=== PATIENT | male | born 1970 | race Caucasian/White ===

== ENCOUNTER 2017-08-02 18:58 | Outpatient (CLI) | payer MEDICAID | END 2017-08-02 18:59 | disposition critical access hospital (66) | LOC: EMS 18:58 | PROVIDERS: ATTEND Surgery | DX: M25.551 Pain in right hip (principal) | CPT/HCPCS: A0425; A0429 ==

== ENCOUNTER 2017-08-02 19:24 | Emergency (ER) | payer MEDICAID ==
--- NOTE | 2017-08-02 20:05 | ED Physician Documentation ---
History of Present Illness - Stated complaint Stated Complaint: RIGHT HIP PAIN - Chief complaint Chief Complaint: Ext Problem - History obtained from History obtained from: Patient - History of Present Illness Timing: How many weeks ago (2-3) Pain level now: 2 Improved by: rest Worsened by: weight-bearing, ambulating - Additonal information Additional information: c/o few weeks of atraumatic right hip pain. Was evaluated at ED, xrays performed (hip, femur, as well as shoulder, as he also was having right shoulder pain at the time, although the shoulder pain resolved). Presents due to ongoing right hip pain. Review of Systems Constitutional: denies: Fever, Chills, Sweats Musculoskeletal: reports: Joint pain (right hip), Pain with weight bearing. denies: Back pain, Extremity swelling, Joint swelling Neurologic: denies: Focal weakness, Numbness PD PAST MEDICAL HISTORY - Past Medical History Past Medical History: Yes Neuro: Seizure disorder Endocrine/Autoimmune: HyPOthyroidism GI: Other Other Past Medical History: Acid reflux - Past Surgical History Past Surgical History: Yes Ortho: Other - Present Medications Home Medications: Ambulatory Orders Medication Instructions Recorded Confirmed Clobazam [Onfi] 10 mg PO BID 08/02/17 Darunavir Ethanolate [Prezista] 1 tab PO DAILY 08/02/17 Emtricitabine/Tenofovir [Truvada 1 tab PO DAILY 08/02/17 200 mg-300 mg Tablet] Lacosamide [Vimpat] 200 mg PO BID 08/02/17 Levothyroxine [Synthroid] 1 tab PO DAILY 08/02/17 Lisinopril 20 mg PO BID 08/02/17 Omeprazole [PriLOSEC] 1 cap PO DAILY 08/02/17 Ritonavir [Norvir] 1 tab PO DAILY 08/02/17 lamoTRIgine [Lamictal Odt] 100 mg PO BID 08/02/17 oxyCODONE [Roxicodone] 5 - 10 mg PO Q6H PRN #20 tablet 08/02/17 - Allergies Allergies/Adverse Reactions: Allergies Allergy/AdvReac Type Severity Reaction Status Date / Time rabeprazole [From Aciphex] Allergy Unknown Verified 08/02/17 19:40 Sulfa (Sulfonamide Allergy Unknown Verified 08/02/17 19:40 Antibiotics) - Social History Does the pt smoke?: No Smoking Status: Never smoker Does the pt drink ETOH?: No Does the pt have substance abuse?: No - Immunizations Immunizations are current?: No Immunizations: TDAP >10years/unknown - POLST Patient has POLST: No PD ED PE NORMAL - Vitals Vital signs reviewed: Yes - General General: Alert and oriented X 3, No acute distress, Well developed/nourished - Abdomen Abdomen: Soft, Non tender - Back Back: No spinal TTP - Derm Derm: Normal color, Warm and dry, No rash - Extremities Extremities: No deformity, No tenderness to palpate, Normal ROM s pain, No edema , No calf tenderness / cord Results - Vitals Vitals: Vital Signs - 24 hr 08/02/17 08/02/17 08/02/17 19:25 21:47 22:48 Temperature 36.2 C L 36.3 C L 36.3 C L Heart Rate 71 68 79 Respiratory 17 16 18 Rate Blood Pressure 141/92 H 138/82 H 134/79 H O2 Saturation 97 98 96 Oxygen O2 Source Room air - Rads (name of study) CT right hip Radiology: Prelim report reviewed, See rad report PD MEDICAL DECISION MAKING - ED course Complexity details: reviewed results, re-evaluated patient, considered differential, d/w patient - Sepsis Event Vital Signs: Vital Signs - 24 hr 08/02/17 08/02/17 08/02/17 19:25 21:47 22:48 Temperature 36.2 C L 36.3 C L 36.3 C L Heart Rate 71 68 79 Respiratory 17 16 18 Rate Blood Pressure 141/92 H 138/82 H 134/79 H O2 Saturation 97 98 96 Oxygen O2 Source Room air Departure - Departure Disposition: 01 Home, Self Care Clinical Impression: Avascular necrosis of bone of right hip Condition: Good Instructions: ED Degenerative Joint Disease Follow-Up: Ibeth Aguila MD [Provider Admit Priv/Credential] - Prescriptions: oxyCODONE [Roxicodone] 5 - 10 mg PO Q6H PRN #20 tablet PRN Reason: Pain Comments: The CT scan reveals AVASCULAR NECROSIS OF THE RIGHT FEMORAL HEAD. This is a problem with the blood supply to the very top of the femur (at the hip joint) which results in inadequate blood flow and gradual destruction of the bone. You need to follow up with an orthopedic surgeon for further testing and discussion of options for treatment. Discharge Date/Time: 08/02/17 22:51
--- NOTE | 2017-08-02 21:39 | CT Report ---
Procedure Date: 08/02/2017 Accession Number: [id number] / [id number] Procedure: CT - Lower Extremity Right W/O CPT Code: FULL RESULT: EXAM: RIGHT HIP CT WITHOUT CONTRAST EXAM DATE: 08/02/2017 09:18 PM. CLINICAL HISTORY: Hip pain. COMPARISON: None. TECHNIQUE: Thin-section axial images were acquired of the hip without contrast. Post-processing: Coronal and sagittal reformats. Other: None. In accordance with CT protocol optimization, one or more of the following dose reduction techniques were utilized for this exam: automated exposure control, adjustment of mA and/or KV based on patient size, or use of iterative reconstructive technique. FINDINGS: Bones: Superior right femoral head avascular necrosis with geographic decreased density superior femoral head marginated by sclerotic rim measuring 3.7 cm in transverse dimension and 4.5 cm in AP dimension. Negative for subcortical crescent. Negative for right femoral head collapse. Joints: The visualized hip joint spaces are normal. No calcified loose bodies. No large effusions. The other visualized joint spaces are normal. Musculature: Normal. No fatty atrophy. Other: The visualized intraperitoneal structures are unremarkable. IMPRESSION: Ficat and Nina classification stage II right femoral head avascular necrosis. RADIA
[2017-08-02] MEDS ORDERED: oxyCODONE 5 MG TABLET PO STA (22:32)
[2017-08-02 22:48] VITALS: BP 134/79
== END 2017-08-02 22:51 | disposition home or self-care (01) ==
LOC: ED 19:24
DX: M87.051 Idiopathic aseptic necrosis of right femur (principal)
CPT/HCPCS: 73700; 99283; A9270

== ENCOUNTER 2017-11-26 10:59 | Emergency (ER) | payer MEDICAID ==
--- NOTE | 2017-11-26 12:42 | ED Physician Documentation ---
PD HPI LOWER EXT INJURY - Stated complaint Stated Complaint: ABD PX/HIP PX - Chief complaint Chief Complaint: Ext Problem - History obtained from History obtained from: Patient - History of Present Illness PD HPI LOW EXT INJURY LOCATION: Right (47-year-old gentleman has chronic right hip pain from avascular necrosis and is scheduled for replacement in January the [facility]. He has been getting as needed oxycodone from his primary care physician, however his insurance will not cover it anymore and he needs something to get him through as the pain is intolerable. He has not been on anything else except for ibuprofen for the pain which does help somewhat.) Review of Systems Constitutional: reports: Reviewed and negative Cardiac: reports: Reviewed and negative Respiratory: reports: Reviewed and negative PD PAST MEDICAL HISTORY - Past Medical History Past Medical History: Yes Cardiovascular: Hypertension Neuro: Seizure disorder Endocrine/Autoimmune: HyPOthyroidism GI: GERD, Other - Past Surgical History Past Surgical History: Yes General: Colonoscopy, Other Ortho: Other - Present Medications Home Medications: Ambulatory Orders Medication Instructions Recorded Confirmed Clobazam [Onfi] 10 mg PO BID 08/02/17 11/26/17 Darunavir Ethanolate [Prezista] 1 tab PO DAILY 08/02/17 11/26/17 Emtricitabine/Tenofovir [Truvada 1 tab PO DAILY 08/02/17 11/26/17 200 mg-300 mg Tablet] Lacosamide [Vimpat] 200 mg PO BID 08/02/17 11/26/17 Levothyroxine [Synthroid] 1 tab PO DAILY 08/02/17 11/26/17 Lisinopril 20 mg PO BID 08/02/17 11/26/17 Omeprazole [PriLOSEC] 1 cap PO DAILY 08/02/17 11/26/17 Ritonavir [Norvir] 1 tab PO DAILY 08/02/17 11/26/17 lamoTRIgine [Lamictal Odt] 100 mg PO BID 08/02/17 11/26/17 oxyCODONE [Roxicodone] 5 - 10 mg PO Q6H PRN #20 tablet 08/02/17 11/26/17 Ibuprofen [Motrin] 800 mg PO Q8H PRN #30 tablet 11/26/17 Morphine Ir [Ms Ir] 15 mg PO Q6H PRN #15 tablet 11/26/17 - Allergies Allergies/Adverse Reactions: Allergies Allergy/AdvReac Type Severity Reaction Status Date / Time rabeprazole [From Aciphex] Allergy Unknown Verified 11/26/17 11:58 Sulfa (Sulfonamide Allergy Unknown Verified 11/26/17 11:58 Antibiotics) - Social History Does the pt smoke?: No Smoking Status: Never smoker Does the pt drink ETOH?: No Does the pt have substance abuse?: No - Immunizations Immunizations are current?: Yes Immunizations: TDAP current <10years - POLST Patient has POLST: No PD ED PE NORMAL - Vitals Vital signs reviewed: Yes - General General: Alert and oriented X 3, No acute distress - Neuro Neuro: Alert and oriented X 3, Normal speech - Psych Psych: Normal mood, Normal affect Results - Vitals Vitals: Vital Signs - 24 hr 11/26/17 11:24 Temperature 35.9 C L Heart Rate 81 Respiratory 14 Rate Blood Pressure 125/85 H O2 Saturation 99 Oxygen O2 Source Room air PD MEDICAL DECISION MAKING - ED course ED course: The [place] prescription monitoring program was queried with regard to this patient. No concerning findings were found. Departure - Departure Disposition: 01 Home, Self Care Clinical Impression: Avascular necrosis of bone of right hip Condition: Good Record reviewed to determine appropriate education?: Yes Prescriptions: Ibuprofen [Motrin] 800 mg PO Q8H PRN #30 tablet PRN Reason: PAIN &/OR FEVER Morphine Ir [Ms Ir] 15 mg PO Q6H PRN #15 tablet PRN Reason: Pain Comments: Follow-up with your primary care physician for further prescriptions and pain management. Return if worse or if new complaints develop. Do not drink or drive while taking narcotic pain medication. Note that many narcotic pain relievers also contain Tylenol/acetaminophen. Please ensure that your total dose of acetaminophen from all sources does not exceed 3 g (3000 mg) per day. You may get constipated while on this medication. Take a stool softener such as Colace twice a day while you are on it. Also add an [id number]-tll-jcbffoc laxative such as senna or MiraLAX on any day that you do not have a bowel movement. If you received a narcotic pain medication or sedative while in the emergency department, do not drive for the next 24 hours. Your blood pressure was elevated today on check into the emergency department. This does not mean that you have hypertension, it is a common phenomenon to come to the emergency department and have elevated blood pressure. I recommend that you see your primary care physician within the week to have it rechecked when you are feeling better.
[2017-11-26 12:55] VITALS: BP 146/85
== END 2017-11-26 12:55 | disposition home or self-care (01) ==
LOC: ED 10:59
DX: M87.9 Osteonecrosis, unspecified (principal); M25.551 Pain in right hip; I10 Essential (primary) hypertension
CPT/HCPCS: 99283

== ENCOUNTER 2019-03-30 11:50 | Outpatient (CLI) | payer MEDICAID | END 2019-03-30 11:51 | disposition short-term general hospital (02) | LOC: EMS 11:50 | PROVIDERS: ATTEND Surgery | DX: R07.9 Chest pain, unspecified (principal); R00.0 Tachycardia, unspecified; R06.02 Shortness of breath | CPT/HCPCS: A0425; A0427; A0999 ==

== ENCOUNTER 2019-05-22 11:25 | Emergency (ER) | payer MEDICAID ==
[2019-05-22] MEDS ORDERED: SODIUM CHLORIDE 0.9% 1,000 ML IV ONE (12:56)
--- NOTE | 2019-05-22 13:01 | ED Physician Documentation ---
PD HPI NVD - Stated complaint Stated Complaint: DIARRHEA - Chief complaint Chief Complaint: General - History obtained from History obtained from: Patient - History of Present Illness Timing - onset: Last night Timing - duration: Hours Timing - details: Abrupt onset, Still present Associated symptoms: Other (profuse diarrhea) Contributing factors: Bad food (over ate a lot last night nothting specific is suspected.) Improved by: BM Similar symptoms before: Diagnosis (travellers diarrhea) Recently seen: Not recently seen - Additonal information Additional information: 49-year-old male with a history of avascular necrosis of the right hip and HIV has developed acute diarrhea beginning last night. He states that he over ate a bunch of different things and does not suspect any specific item. He denies any undercooked eggs or poultry. He denies receiving any fresh eggs from his neighbors.He has had multiple episodes throughout the night. He remembers the last time he had this he does not have much in the way of pain. In [place] he required an antibiotic to resolve it. His coronavirus exposure is low. He reports being in his home with his father for the past several weeks and he has rarely been outside the house. Review of Systems Constitutional: denies: Fever, Chills, Myalgias, Fatigue, Sweats Eyes: denies: Decreased vision Ears: denies: Ear pain Nose: denies: Rhinorrhea / runny nose, Congestion Throat: denies: Sore throat Cardiac: denies: Chest pain / pressure Respiratory: denies: Dyspnea, Cough GI: reports: Diarrhea. denies: Abdominal Pain, Nausea, Vomiting : denies: Dysuria, Frequency Skin: denies: Rash Musculoskeletal: reports: Joint pain. denies: Neck pain, Back pain, Extremity pain Neurologic: denies: Generalized weakness, Focal weakness, Numbness PD PAST MEDICAL HISTORY - Past Medical History Cardiovascular: Hypertension Neuro: Seizure disorder Endocrine/Autoimmune: HyPOthyroidism GI: GERD, Other - Past Surgical History Past Surgical History: Yes General: Colonoscopy, Other Ortho: Other - Present Medications Home Medications: Ambulatory Orders Medication Instructions Recorded Confirmed Clobazam [Onfi] 10 mg PO BID 08/02/17 05/22/19 Lacosamide [Vimpat] 200 mg PO BID 08/02/17 05/22/19 Levothyroxine [Synthroid] 1 tab PO DAILY 08/02/17 11/26/17 lamoTRIgine [Lamictal Odt] 100 mg PO TID 08/02/17 11/26/17 lisinopriL [Lisinopril] 20 mg PO BID 08/02/17 05/22/19 Morphine Ir [Ms Ir] 15 mg PO Q6H PRN #15 tablet 11/26/17 05/22/19 Aspirin [Adult Aspirin Regimen] 81 mg PO DAILY 05/22/19 Ciprofloxacin HCl [Cipro] 500 mg PO BID #14 tablet 05/22/19 Clopidogrel [Plavix] 75 mg PO DAILY 05/22/19 05/22/19 Elviteg/Cob/Emtri/Tenof Alafen 1 each PO DAILY 05/22/19 05/22/19 [Genvoya Tablet] Ezetimibe 10 mg PO DAILY 05/22/19 05/22/19 Isosorbide Mononitrate ER [Imdur] 30 mg PO DAILY 05/22/19 05/22/19 Metoprolol Succinate 25 mg PO DAILY 05/22/19 05/22/19 Nitroglycerin [Nitrostat] 0.4 mg SL Q5MIN PRN 05/22/19 05/22/19 Pantoprazole Sodium 40 mg PO DAILY 05/22/19 05/22/19 Rosuvastatin Calcium 10 mg PO DAILY 05/22/19 05/22/19 - Allergies Allergies/Adverse Reactions: Allergies Allergy/AdvReac Type Severity Reaction Status Date / Time rabeprazole [From Aciphex] Allergy Unknown Verified 12/20/18 12:13 Sulfa (Sulfonamide Allergy Unknown Verified 12/20/18 12:13 Antibiotics) - Social History Does the pt smoke?: No Smoking Status: Never smoker Does the pt drink ETOH?: No Does the pt have substance abuse?: No - Immunizations Immunizations are current?: Yes Immunizations: TDAP current <10years - POLST Patient has POLST: No PD ED PE NORMAL - Vitals Vital signs reviewed: Yes (hypertensive) - General General: Alert and oriented X 3, No acute distress, Well developed/nourished - HEENT HEENT: Atraumatic, PERRL, EOMI - Neck Neck: Supple, no meningeal sign - Cardiac Cardiac: RRR, No murmur - Respiratory Respiratory: No respiratory distress, Clear bilaterally - Abdomen Abdomen: Soft, Non tender, No organomegaly, Other (Borborygmi is present) - Back Back: No CVA TTP, No spinal TTP - Derm Derm: Normal color, Warm and dry, No rash - Extremities Extremities: No deformity, No edema - Neuro Neuro: Alert and oriented X 3, strength and conditioning coach 2-12 intact, No motor deficit, No sensory deficit, Normal speech Eye Opening: Spontaneous Motor: Obeys Commands Verbal: Oriented GCS Score: 15 - Psych Psych: Normal mood, Normal affect Results - Vitals Vitals: Vital Signs - 24 hr 05/22/19 05/22/19 11:33 13:20 Temperature 37.5 C 36.9 C Heart Rate 96 75 Respiratory 18 16 Rate Blood Pressure 141/90 H 118/66 O2 Saturation 98 98 Oxygen O2 Source Room air - Labs Labs: Microbiology 05/22/19 13:10 Campylobacter Antigen Assay - Final Stool PD MEDICAL DECISION MAKING - ED course Complexity details: reviewed old records, re-evaluated patient, considered differential, d/w patient ED course: 49-year-old male with acute onset of diarrhea has had traveler's diarrhea previously with similar required antibiotic for treatment. He is on narcotic regularly and he denies any chance of withdrawal. We were able to obtain stool specimen here in the emergency department and it was negative for campylobacter and we will treat empirically for diarrhea with cipro. Departure - Departure Disposition: 01 Home, Self Care Clinical Impression: Diarrhea of presumed infectious origin Condition: Stable Instructions: ED Diarrhea Bacterial Follow-Up: Your, doctor [Other] Prescriptions: Ciprofloxacin HCl [Cipro] 500 mg PO BID #14 tablet Discharge Date/Time: 05/22/19 13:20
[2019-05-22 13:21] VITALS: BP 118/66
== END 2019-05-22 13:20 | disposition home or self-care (01) ==
LOC: ED 11:25
DX: R19.7 Diarrhea, unspecified (principal); I10 Essential (primary) hypertension
CPT/HCPCS: 87045; 87046; 99283; 99284

== ENCOUNTER 2019-10-29 08:05 | Emergency (ER) | payer MEDICAID ==
--- NOTE | 2019-10-29 08:31 | ED Physician Documentation ---
PD HPI DYSPNEA - Stated complaint Stated Complaint: DIZZINESS - Chief complaint Chief Complaint: Cardiac - History obtained from History obtained from: Patient - History of Present Illness Timing - onset: How many hours ago (several), Today (onset this morning of feeling short of breath and lightheaded. Similar to having hemothorax after his heart cath 9 days ago.) Timing - onset during: Light activity Timing - duration: Hours Timing - details: Gradual onset, Still present Inciting event(s): Immobilization/travel (Hospitalized for 9 days subsequent to a hemothorax complication from a heart cath done outpatient. He had a chest tube for a week. It was removed on and appeared stable with discharge 2 days ago (Tuesday).). No: URI Improved by: Rest, Sitting up Worsened by: Exertion (just walking around) Associated symptoms: Chest pain / discomfort (right chest pleuritic, but has had that s/p chest tube right side.). No: Fever, Cough, Wheezing Similar symptoms before: Diagnosis (see above) Recently seen: Admitted (In the for approximately 9 days with a chest tube for 7 days of that and discharged just 2 days ago.) Review of Systems Constitutional: denies: Fever, Chills Nose: denies: Rhinorrhea / runny nose, Congestion Throat: denies: Sore throat Cardiac: reports: Chest pain / pressure. denies: Palpitations, Pedal edema, Calf pain Respiratory: reports: Dyspnea. denies: Cough GI: denies: Abdominal Pain, Nausea, Vomiting Skin: denies: Rash, Lesions Neurologic: reports: Generalized weakness. denies: Near syncope PD PAST MEDICAL HISTORY - Past Medical History Cardiovascular: Hypertension Neuro: Seizure disorder Endocrine/Autoimmune: HyPOthyroidism GI: GERD, Other - Past Surgical History Past Surgical History: Yes General: Colonoscopy, Other Ortho: Other Cardiovascular: Coronary stent - Present Medications Home Medications: Ambulatory Orders Medication Instructions Recorded Confirmed Clobazam [Onfi] 10 mg PO BID 08/02/17 10/29/19 Lacosamide [Vimpat] 200 mg PO BID 08/02/17 10/29/19 Levothyroxine [Synthroid] 88 mcg PO DAILY 08/02/17 10/29/19 lamoTRIgine [Lamictal Odt] 100 mg PO BID 08/02/17 10/29/19 lisinopriL [Lisinopril] 20 mg PO BID 08/02/17 10/29/19 Aspirin [Adult Aspirin Regimen] 81 mg PO DAILY 05/22/19 10/29/19 Clopidogrel [Plavix] 75 mg PO DAILY 05/22/19 10/29/19 Elviteg/Cob/Emtri/Tenof Alafen 1 each PO DAILY 05/22/19 10/29/19 [Genvoya Tablet] Ezetimibe 10 mg PO DAILY 05/22/19 10/29/19 Isosorbide Mononitrate ER [Imdur] 30 mg PO DAILY 05/22/19 10/29/19 Metoprolol Succinate 25 mg PO DAILY 05/22/19 10/29/19 Nitroglycerin [Nitrostat] 0.4 mg SL Q5MIN PRN 05/22/19 10/29/19 Pantoprazole Sodium 40 mg PO DAILY 05/22/19 10/29/19 Rosuvastatin Calcium 10 mg PO DAILY 05/22/19 10/29/19 Morphine Ir [Ms Ir] 30 mg PO TID 10/29/19 10/29/19 - Allergies Allergies/Adverse Reactions: Allergies Allergy/AdvReac Type Severity Reaction Status Date / Time abacavir [From Triumeq] Allergy Unknown Verified 10/29/19 08:22 dolutegravir [From Triumeq] Allergy Unknown Verified 10/29/19 08:22 lamivudine [From Triumeq] Allergy Unknown Verified 10/29/19 08:22 metronidazole Allergy Unknown Verified 10/29/19 08:22 rabeprazole [From Aciphex] Allergy Unknown Verified 10/29/19 08:22 Sulfa (Sulfonamide Allergy Unknown Verified 10/29/19 08:22 Antibiotics) - Social History Does the pt smoke?: No Smoking Status: Never smoker Does the pt drink ETOH?: No Does the pt have substance abuse?: No - Immunizations Immunizations are current?: Yes Immunizations: TDAP current <10years - POLST Patient has POLST: No PD ED PE NORMAL - Vitals Vital signs reviewed: Yes - General General: Alert and oriented X 3, No acute distress, Well developed/nourished - HEENT HEENT: Pharynx benign - Neck Neck: Supple, no meningeal sign, No adenopathy, No JVD - Cardiac Cardiac: RRR, No murmur, No rub - Respiratory Respiratory: No respiratory distress, Clear bilaterally (with some decreased sounds in upper right. Chest tube insertion site right side without signs of infection. Dressing in place. ) - Abdomen Abdomen: Soft, Non tender - Derm Derm: Normal color, Warm and dry - Extremities Extremities: No tenderness to palpate, Normal ROM s pain, No edema, No calf tenderness / cord - Neuro Neuro: Alert and oriented X 3, No motor deficit, Normal speech Results - Vitals Vitals: Vital Signs - 24 hr 10/29/19 10/29/19 10/29/19 08:18 09:47 11:23 Temperature 36.9 C 37.3 C Heart Rate 78 71 70 Respiratory 18 18 18 Rate Blood Pressure 153/97 H 119/66 112/65 O2 Saturation 96 96 100 10/29/19 12:25 Temperature 36.6 C Heart Rate 67 Respiratory 16 Rate Blood Pressure 91/63 O2 Saturation 97 Oxygen O2 Source Room air - Labs Labs: Laboratory Tests 10/29/19 10/29/19 10/29/19 08:45 08:45 08:45 WBC 7.4 RBC 3.29 L Hgb 10.8 L Hct 31.5 L MCV 95.7 H MCH 32.8 H MCHC 34.3 RDW 12.6 Plt Count 306 MPV 9.4 Neut # (Auto) 4.7 Lymph # (Auto) 1.9 Woods # (Auto) 0.6 Eos # (Auto) 0.1 Baso # (Auto) 0.0 Absolute Nucleated RBC 0.00 Nucleated RBC % 0.0 Sodium 134 L Potassium 4.7 Chloride 99 L Carbon Dioxide 24 Anion Gap 11.0 BUN 15 Creatinine 0.9 Estimated GFR (MDRD) 89 Glucose 116 H Calcium 9.7 Magnesium 2.3 Total Bilirubin 0.6 AST 29 ALT 27 Alkaline Phosphatase 42 Troponin I High Sens 6.3 B-Natriuretic Peptide Total Protein 8.5 H Albumin 4.5 Globulin 4.0 Albumin/Globulin Ratio 1.1 Lipase 25 10/29/19 10/29/19 08:45 10:45 WBC RBC Hgb 10.2 L Hct 29.6 L MCV MCH MCHC RDW Plt Count MPV Neut # (Auto) Lymph # (Auto) Woods # (Auto) Eos # (Auto) Baso # (Auto) Absolute Nucleated RBC Nucleated RBC % Sodium Potassium Chloride Carbon Dioxide Anion Gap BUN Creatinine Estimated GFR (MDRD) Glucose Calcium Magnesium Total Bilirubin AST ALT Alkaline Phosphatase Troponin I High Sens B-Natriuretic Peptide 24 Total Protein Albumin Globulin Albumin/Globulin Ratio Lipase - Rads (name of study) chest xray Radiology: Prelim report reviewed (loculated right apical pleural effusion/hematoma. No PTX.), See rad report PD MEDICAL DECISION MAKING - ED course Complexity details: reviewed results (loculated pleural fluid right apical. Unknown if similar or not to at [facility].), re-evaluated patient (CXR is improving. Presume the fatigue and dyspnea is related to deconditioning as well as the impaired lung function, but not due to rebleed. ), considered differential, d/w patient, d/w cosmetic sales consultant (Rashid from cardiology who had treated the patient reviewed the films and compared to ours and states his loculated hematoma is improving) Departure - Departure Disposition: 01 Home, Self Care Clinical Impression: Dyspnea, Chest pain, Hemothorax after procedure Condition: Stable Record reviewed to determine appropriate education?: Yes Follow-Up: MARIAN MARTINEZ MD [Physician No Access] - Comments: Dr. Martinez says the blood collection around your lung is actually improving. Your blood count is good too. We do note your blood pressure is slightly low. With the feeling of some lightheadedness, you could decrease your indoor to half a tablet daily for the next several days. Make sure you are having adequate hydration. Recheck if persistent symptoms over the next few days. Discharge Date/Time: 10/29/19 12:25
[2019-10-29] MEDS ORDERED: SODIUM CHLORIDE 0.9% 1,000 ML IV STA (08:50)
[2019-10-29 08:55] LABS: BASOPHILS % (AUTO) 0.4 %; EOSINOPHILS # (AUTO) 0.1 10^3/uL (0.0-0.7); HGB - HEMOGLOBIN 10.8 g/dL (14.0-18.0); LYMPHOCYTES # (AUTO) 1.9 10^3/uL (1.5-3.5); LYMPHOCYTES % (AUTO) 26.4 %; MEAN CORPUSCULAR HEMOGLOBIN 32.8 pg (27.0-31.0); MEAN CORPUSCULAR HGB CONC 34.3 g/dL (32.0-36.0); MEAN CORPUSCULAR VOLUME 95.7 fL (80.0-94.0); MEAN PLATELET VOLUME 9.4 fL (7.4-11.4); MONOCYTES # (AUTO) 0.6 10^3/uL (0.0-1.0); MONOCYTES % (AUTO) 7.8 %; NEUTROPHILS # (AUTO) 4.7 10^3/uL (1.5-6.6); NEUTROPHILS % (AUTO) 63.6 %; PLT - PLATELET COUNT 306 10^3/uL (130-450); RED BLOOD COUNT 3.29 10^6/uL (4.70-6.10); RED CELL DISTRIBUTION WIDTH 12.6 % (12.0-15.0); WHITE BLOOD COUNT 7.4 x10^3/uL (4.8-10.8)
--- NOTE | 2019-10-29 08:55 | XRAY Report ---
PROCEDURE: Chest 1 View X-Ray INDICATIONS: Chest pain TECHNIQUE: One view of the chest was acquired. COMPARISON: None available. FINDINGS: Surgical changes and devices: None. Lungs and pleura: There is a large pleural-based oval opacity within the right upper lung zone perip herally, measuring up to 13.5 cm in craniocaudal dimension. Left lung is clear. No definite pneumotho rax. No layering pleural effusions. Mediastinum: Mediastinal contours appear within normal limits without mediastinal shift. Heart size is normal. Bones and chest wall: No suspicious bony lesions. No definite bony rib destruction identified. Overl nilay soft tissues appear unremarkable. IMPRESSION: 1. Large peripheral oval opacity in the right upper lung zone. Findings are suggestive of a mass or l oculated pleural fluid collection. Recommend further evaluation with CT. Reviewed by: Everton Desai MD on 10/29/2019 8:54 AM PDT Approved by: Everton Desai MD on 10/29/2019 8:54 AM PDT Station ID: [id number]
[2019-10-29 09:16] LABS: ALBUMIN 4.5 g/dL (3.2-5.5); ALBUMIN/GLOBULIN RATIO 1.1 (1.0-2.2); BILIRUBIN,TOTAL 0.6 mg/dL (0.2-1.0); CALCIUM 9.7 mg/dL (8.5-10.3); CREATININE 0.9 mg/dL (0.6-1.2); MAGNESIUM 2.3 mg/dL (1.7-2.8); TOTAL PROTEIN 8.5 g/dL (6.7-8.2)
--- NOTE | 2019-10-29 10:40 | XRAY Report ---
PROCEDURE: Chest 1 View X-Ray INDICATIONS: eval interval change of hemothorax TECHNIQUE: One view of the chest was acquired. COMPARISON: Films performed earlier the same day FINDINGS: Surgical changes and devices: None. Lungs and pleura: Large pleural-based ovoid opacity overlying the right superolateral lung is unchang ed in size or configuration. The rest of the lungs are clear.. Mediastinum: Mediastinal contours appear normal. Heart size is normal. Bones and chest wall: No suspicious bony lesions. Overlying soft tissues appear unremarkable. IMPRESSION: No change in right upper lobe opacity. Reviewed by: Basilia Dumont MD on 10/29/2019 9:38 AM MERLE Approved by: Basilia Dumont MD on 10/29/2019 9:38 AM MERLE Station ID: [id number]
[2019-10-29 10:48] LABS: HGB - HEMOGLOBIN 10.2 g/dL (14.0-18.0)
[2019-10-29 12:26] VITALS: BP 91/63
== END 2019-10-29 12:25 | disposition home or self-care (01) ==
LOC: ED 08:05
DX: J95.861 Postprocedural hematoma of a respiratory system organ or structure following other procedure (principal); Y84.0 Cardiac catheterization as the cause of abnormal reaction of the patient, or of later complication, without mention of misadventure at the time of the procedure; J94.2 Hemothorax; R06.00 Dyspnea, unspecified; R07.89 Other chest pain; I10 Essential (primary) hypertension; Z95.5 Presence of coronary angioplasty implant and graft; Z79.82 Long term (current) use of aspirin
CPT/HCPCS: 36415; 71045; 80053; 83690; 83735; 83880; 84484; 85014; 85018; 85025; 93005; 99284

== ENCOUNTER 2021-03-03 11:46 | Outpatient (CLI) | payer MEDICAID | END 2021-03-03 11:47 | disposition critical access hospital (66) | LOC: EMS 11:46 | DX: R10.9 Unspecified abdominal pain (principal); R11.2 Nausea with vomiting, unspecified; R19.7 Diarrhea, unspecified | CPT/HCPCS: A0425; A0427; A0999 ==

== ENCOUNTER 2021-03-03 12:11 | Emergency (ER) | payer MEDICAID ==
--- NOTE | 2021-03-03 12:42 | ED Physician Documentation ---
PD HPI NVD - Stated complaint Stated Complaint: N/V/D - Chief complaint Chief Complaint: Abd Pain - History obtained from History obtained from: Patient - History of Present Illness Timing - onset: How many hours ago (5-6), Today Timing - duration: Hours (5-6) Timing - details: Abrupt onset, Still present (abrupt nausea and vomiting with diarrhea.) Associated symptoms: Abdominal pain (crampy intermittent), Loss of appetite. No: Fever, Hematemesis Contributing factors: No: Sick contact, Bad food, Recent antibiotics Improved by: No: Vomiting Worsened by: Eating Similar symptoms before: Has not had sx before Recently seen: Not recently seen Review of Systems Constitutional: denies: Fever, Chills Nose: denies: Rhinorrhea / runny nose, Congestion Throat: denies: Sore throat Respiratory: denies: Cough GI: reports: Abdominal Pain (lower abd crampy), Nausea, Vomiting, Diarrhea. denies: Hematemesis Neurologic: reports: Generalized weakness. denies: Near syncope, Syncope, Altered mental status, Headache PD PAST MEDICAL HISTORY - Past Medical History Cardiovascular: Hypertension Neuro: Seizure disorder Endocrine/Autoimmune: HyPOthyroidism GI: GERD, Other - Past Surgical History Past Surgical History: Yes General: Colonoscopy, Other Ortho: Other Cardiovascular: Coronary stent - Present Medications Home Medications: Ambulatory Orders Medication Instructions Recorded Confirmed Clobazam [Onfi] 10 mg PO BID 08/02/17 10/29/19 Lacosamide [Vimpat] 200 mg PO BID 08/02/17 10/29/19 Levothyroxine [Synthroid] 88 mcg PO DAILY 08/02/17 10/29/19 lamoTRIgine [Lamictal Odt] 100 mg PO BID 08/02/17 10/29/19 lisinopriL [Lisinopril] 20 mg PO BID 08/02/17 10/29/19 Aspirin [Adult Aspirin Regimen] 81 mg PO DAILY 05/22/19 10/29/19 Clopidogrel [Plavix] 75 mg PO DAILY 05/22/19 10/29/19 Elviteg/Cob/Emtri/Tenof Alafen 1 each PO DAILY 05/22/19 10/29/19 [Genvoya Tablet] Ezetimibe 10 mg PO DAILY 05/22/19 10/29/19 Isosorbide Mononitrate ER [Imdur] 30 mg PO DAILY 05/22/19 10/29/19 Metoprolol Succinate 25 mg PO DAILY 05/22/19 10/29/19 Nitroglycerin [Nitrostat] 0.4 mg SL Q5MIN PRN 05/22/19 10/29/19 Pantoprazole Sodium 40 mg PO DAILY 05/22/19 10/29/19 Rosuvastatin Calcium 10 mg PO DAILY 05/22/19 10/29/19 Morphine Ir [Ms Ir] 30 mg PO TID 10/29/19 10/29/19 Diphenoxylate/Atropine [Lomotil] 1 each PO QID PRN #12 tablet 03/03/21 Ondansetron Odt [Zofran] 4 mg TL Q6H PRN #15 tablet 03/03/21 - Allergies Allergies/Adverse Reactions: Allergies Allergy/AdvReac Type Severity Reaction Status Date / Time abacavir [From Triumeq] Allergy Unknown Verified 03/03/21 12:16 dolutegravir [From Triumeq] Allergy Unknown Verified 03/03/21 12:16 lamivudine [From Triumeq] Allergy Unknown Verified 03/03/21 12:16 metronidazole Allergy Unknown Verified 03/03/21 12:16 rabeprazole [From Aciphex] Allergy Unknown Verified 03/03/21 12:16 Sulfa (Sulfonamide Allergy Unknown Verified 03/03/21 12:16 Antibiotics) - Social History Does the pt smoke?: No Smoking Status: Never smoker Does the pt drink ETOH?: No Does the pt have substance abuse?: No - Immunizations Immunizations are current?: Yes Immunizations: TDAP current <10years - POLST Patient has POLST: No PD ED PE NORMAL - Vitals Vital signs reviewed: Yes - General General: Alert and oriented X 3, Well developed/nourished - HEENT HEENT: Moist mucous membranes, Pharynx benign - Neck Neck: Supple, no meningeal sign, No adenopathy - Cardiac Cardiac: RRR, No murmur - Respiratory Respiratory: Clear bilaterally - Abdomen Abdomen: Normal bowel sounds, Soft, Non distended, No organomegaly, Other (mild tender without guarding periumbilical area. ) Results - Vitals Vitals: Vital Signs - 24 hr 03/03/21 14:16 Temperature 37.0 C Heart Rate 88 Respiratory 16 Rate Blood Pressure 128/72 O2 Saturation 98 Oxygen O2 Source Room air - Labs Labs: Laboratory Tests 03/03/21 03/03/21 03/03/21 13:07 13:07 15:00 WBC 11.0 H RBC 4.30 L Hgb 14.1 Hct 39.3 L MCV 91.4 MCH 32.8 H MCHC 35.9 RDW 12.1 Plt Count 187 MPV 9.4 Neut # (Auto) 9.6 H Lymph # (Auto) 0.9 L [place] # (Auto) 0.4 Eos # (Auto) 0.0 Baso # (Auto) 0.0 Absolute Nucleated RBC 0.00 Nucleated RBC % 0.0 Sodium 134 L Potassium 5.0 Chloride 101 Carbon Dioxide 24 Anion Gap 9.0 BUN 14 Creatinine 1.0 Estimated GFR (MDRD) 79 L Glucose 119 H Calcium 9.2 Magnesium 2.2 Total Bilirubin 0.5 AST 28 ALT 42 Alkaline Phosphatase 36 L Total Protein 7.8 Albumin 4.6 Globulin 3.2 Albumin/Globulin Ratio 1.4 Lipase 25 Urine Color YELLOW Urine Clarity CLEAR Urine pH 5.5 Ur Specific [place] <=1.005 Urine Protein NEGATIVE Urine Glucose (UA) NEGATIVE Urine Ketones NEGATIVE Urine Occult Blood NEGATIVE Urine Nitrite NEGATIVE Urine Bilirubin NEGATIVE Urine Urobilinogen 0.2 (NORMAL) Ur Leukocyte Esterase NEGATIVE Ur Microscopic Review NOT INDICATED Urine Culture Comments NOT INDICATED - Rads (name of study) abd/pelvic CT Radiology: Prelim report reviewed (no acute process), See rad report PD MEDICAL DECISION MAKING - ED course Complexity details: reviewed results, re-evaluated patient (feeling better), considered differential (presume viral GE or food related with normal labs pretty much otherwise and negative CT. ), d/w patient Departure - Departure Disposition: 01 Home, Self Care Clinical Impression: Nausea vomiting and diarrhea Condition: Stable Record reviewed to determine appropriate education?: Yes Instructions: ED Diet Vomiting Diarrhea Prescriptions: Diphenoxylate/Atropine [Lomotil] 1 each PO QID PRN #12 tablet PRN Reason: Diarrhea Ondansetron Odt [Zofran] 4 mg TL Q6H PRN #15 tablet PRN Reason: Nausea / Vomiting Comments: New his usual medications. Use ondansetron every 4-6 hours if needed for nausea. Lomotil 4 times a day if needed for diarrhea. I would presume your symptoms should improve within a day or 2. Recheck if lasting longer than that or increasing pain, bloody stool, fevers, other concerns. Discharge Date/Time: 03/03/21 15:57
[2021-03-03] MEDS ORDERED: MORPHINE 10 MG/ML VIAL IVP STA (12:57)
[2021-03-03] MEDS ORDERED: SODIUM CHLORIDE 0.9% 1,000 ML IV STA (12:57)
[2021-03-03] MEDS ORDERED: DROPERIDOL 5 MG/2 ML VIAL IVP STA (12:57)
[2021-03-03] MEDS ORDERED: KETOROLAC 15 MG/ML VIAL IVP STA (12:57)
[2021-03-03 13:13] LABS: BASOPHILS % (AUTO) 0.3 %; EOSINOPHILS % (AUTO) 0.1 %; HCT - HEMATOCRIT 39.3 % (42.0-52.0); HGB - HEMOGLOBIN 14.1 g/dL (14.0-18.0); LYMPHOCYTES # (AUTO) 0.9 10^3/uL (1.5-3.5); LYMPHOCYTES % (AUTO) 8.3 %; MEAN CORPUSCULAR HEMOGLOBIN 32.8 pg (27.0-31.0); MEAN CORPUSCULAR HGB CONC 35.9 g/dL (32.0-36.0); MEAN CORPUSCULAR VOLUME 91.4 fL (80.0-94.0); MEAN PLATELET VOLUME 9.4 fL (7.4-11.4); MONOCYTES # (AUTO) 0.4 10^3/uL (0.0-1.0); MONOCYTES % (AUTO) 3.5 %; NEUTROPHILS # (AUTO) 9.6 10^3/uL (1.5-6.6); NEUTROPHILS % (AUTO) 87.4 %; PLT - PLATELET COUNT 187 10^3/uL (130-450); RED CELL DISTRIBUTION WIDTH 12.1 % (12.0-15.0)
[2021-03-03 13:32] LABS: ALBUMIN 4.6 g/dL (3.2-5.5); ALBUMIN/GLOBULIN RATIO 1.4 (1.0-2.2); BILIRUBIN,TOTAL 0.5 mg/dL (0.2-1.0); CALCIUM 9.2 mg/dL (8.5-10.3); MAGNESIUM 2.2 mg/dL (1.7-2.8); TOTAL PROTEIN 7.8 g/dL (6.7-8.2)
[2021-03-03] MEDS ORDERED: iohexoL-300 100 ML VIAL ONE (13:33)
--- NOTE | 2021-03-03 14:42 | CT Report ---
PROCEDURE: Abdomen/Pelvis W INDICATIONS: LLQ Abdominal pain, diverticulitis suspected CONTRAST: IV CONTRAST: Isovue 300 ml: 100 PO CONTRAST: *NO PO CONTRAST TECHNIQUE: After the administration of weight appropriate dose of intravenous contrast, 5 mm thick sections acqu ired from the diaphragms to the symphysis. 5 mm thick coronal and sagittal reformats were acquired. For radiation dose reduction, the following was used: automated exposure control, adjustment of mA and/or kV according to patient size. COMPARISON: None. FINDINGS: Image quality: Excellent. ABDOMEN: Lung bases: Lung bases are clear. Heart size is normal. Atherosclerotic calcifications are noted. Solid organs: Liver and spleen are normal in size and enhancement. Gallbladder is unremarkable. Bi liary system is non dilated. Pancreas enhances normally. No adrenal nodules. Kidneys demonstrate n ormal size and enhancement, without hydronephrosis. Bilateral ureters are normal in course and calib er. Peritoneum and bowel: Bowel loops demonstrate normal wall thickness and caliber. No free fluid or a ir. Visualized appendix appears normal. Nodes and vessels: No retroperitoneal or mesenteric adenopathy by size criteria. Aorta and inferior vena cava are normal in size. Atherosclerotic calcifications of the abdominal aorta. Miscellaneous: No ventral hernias. PELVIS: Genitourinary: Bladder wall thickness is normal. Miscellaneous: No pelvic adenopathy. Very small fat-containing inguinal hernias larger on the right. Bones: No suspicious bony lesions. No acute vertebral body compression fractures. Lower lumbar spo ndylosis most pronounced at L5-S1. Moderate-severe degenerative changes of the right hip. Mild degene rative changes of the left hip. IMPRESSION: CT abdomen and pelvis without acute abnormalities to explain patient's symptoms. Atherosclerotic vascular disease with moderate calcification of the left anterior descending coronary artery as well as scattered abdominal aortic calcifications. Reviewed by: Rajesh Longo MD on 03/03/2021 2:41 PM PST Approved by: Rajesh Longo MD on 03/03/2021 2:41 PM PST Station ID: [id number]
[2021-03-03] MEDS ORDERED: DIPHENOX/ATROPINE 2.5/0.025 MG TABLET PO STA (14:55)
[2021-03-03 15:07] VITALS: BP 128/72
[2021-03-03 15:15] LABS: BILIRUBIN,URINE NEGATIVE (NEGATIVE); GLUCOSE, URINE (UA) NEGATIVE (NEGATIVE); KETONES,URINE (UA) NEGATIVE (NEGATIVE); LEUKOCYTE ESTERASE, URINE NEGATIVE (NEGATIVE); NITRITE,URINE NEGATIVE (NEGATIVE); OCCULT BLOOD,URINE NEGATIVE (NEGATIVE); PH,URINE 5.5 PH (5.0-7.5); PROTEIN,URINE NEGATIVE (NEGATIVE); UROBILINOGEN,URINE 0.2 (NORMAL) E.U./dL (NORMAL)
[2021-03-03 15:18] LABS: CLARITY,URINE CLEAR (CLEAR)
[2021-03-03] MEDS ORDERED: iohexoL-300 100 ML VIAL IVP ONE (19:57)
== END 2021-03-03 15:57 | disposition home or self-care (01) ==
LOC: ED 12:11
DX: R11.2 Nausea with vomiting, unspecified (principal); R19.7 Diarrhea, unspecified; I10 Essential (primary) hypertension
CPT/HCPCS: 36415; 74177; 80053; 81003; 83690; 83735; 85025; 96374; 96375; 99282; 99284; A9270; Q9967; 81001; 87086

== ENCOUNTER 2021-03-29 06:34 | Outpatient (CLI) | payer MEDICAID | END 2021-03-29 06:35 | disposition critical access hospital (66) | LOC: EMS 06:34 | DX: R10.9 Unspecified abdominal pain (principal) | CPT/HCPCS: A0425; A0429 ==

== ENCOUNTER 2021-03-29 06:51 | Emergency (ER) | payer MEDICAID ==
--- NOTE | 2021-03-29 07:24 | ED Physician Documentation ---
PD HPI ABD PAIN - Stated complaint Stated Complaint: ABD PX - Chief complaint Chief Complaint: Abd Pain - History obtained from History obtained from: Patient - History of Present Illness Timing - onset: Last night Timing - details: Abrupt onset, Still present Quality: Cramping, Aching, Pain (associated with nausea, vomiting, and gassy diarrhea. Had diarrhea a week ago after couple days of Amox antibiotic for dental pain/infection. Had diarrhea/vomiting episode a month ago (seen here 03/03) similar to this. Denies running out of pain meds. no known Crohns nor UC.) Location: All over / everywhere (cramping pain diffusely, nonfocal.) Radiation: No: Chest, Lower back, Left flank, Right flank Improved by: No: Vomiting Worsened by: Eating, Palpation. No: Breathing Associated symptoms: Nausea, Vomiting, Diarrhea. No: Fever, Hematemesis, Hematochezia Similar symptoms before: No diagnosis (has had similar episodes 3 times in past couple of months, with normal seeming BMs interval times.) Recently seen: Clinic (dental clinic a week ago for dental pain, and Rx Amox, which he only took couple days due to the diarrhea produced.), Emergency Dept (a month ago for similar.) Review of Systems Constitutional: denies: Fever, Chills Nose: denies: Rhinorrhea / runny nose, Congestion Throat: denies: Sore throat Respiratory: denies: Cough GI: reports: Abdominal Pain, Nausea, Vomiting, Diarrhea. denies: Abdominal Swelling, Constipation (not currently, had had some several days ago with increased pain meds due to tooth pain, and no BM for 3 days, but now diarrhea.) : denies: Dysuria Neurologic: reports: Generalized weakness. denies: Near syncope, Altered mental status, Headache PD PAST MEDICAL HISTORY - Past Medical History Cardiovascular: Hypertension Neuro: Seizure disorder Endocrine/Autoimmune: HyPOthyroidism GI: GERD, Other Musculoskeletal: Other (osteoarthritis necrosis right hip, due for hip replacement at in June. ) - Past Surgical History Past Surgical History: Yes General: Colonoscopy, Other Ortho: Other Cardiovascular: Coronary stent - Present Medications Home Medications: Ambulatory Orders Medication Instructions Recorded Confirmed Clobazam [Onfi] 10 mg PO BID 08/02/17 03/29/21 Lacosamide [Vimpat] 200 mg PO BID 08/02/17 03/29/21 Levothyroxine [Synthroid] 88 mcg PO DAILY 08/02/17 03/29/21 lamoTRIgine [Lamictal Odt] 100 mg PO BID 08/02/17 03/29/21 lisinopriL [Lisinopril] 20 mg PO BID 08/02/17 03/29/21 Elviteg/Cob/Emtri/Tenof Alafen 1 each PO DAILY 05/22/19 03/29/21 [Genvoya Tablet] Ezetimibe 10 mg PO DAILY 05/22/19 03/29/21 Isosorbide Mononitrate ER [Imdur] 30 mg PO DAILY 05/22/19 03/29/21 Metoprolol Succinate 25 mg PO DAILY 05/22/19 03/29/21 Nitroglycerin [Nitrostat] 0.4 mg SL Q5MIN PRN 05/22/19 03/29/21 Pantoprazole Sodium 40 mg PO DAILY 05/22/19 03/29/21 Rosuvastatin Calcium 10 mg PO DAILY 05/22/19 03/29/21 Morphine Ir [Ms Ir] 30 mg PO TID 10/29/19 03/29/21 Diphenoxylate/Atropine [Lomotil] 1 each PO QID PRN #12 tablet 03/03/21 03/29/21 Ondansetron Odt [Zofran] 4 mg TL Q6H PRN #15 tablet 03/03/21 03/29/21 Doxycycline Hyclate 100 mg PO BID 7 Days #14 cap 03/29/21 Loperamide [Imodium] 2 mg PO QID PRN #30 cap 03/29/21 Promethazine [Phenergan] 25 mg PO Q6H PRN #25 tab 03/29/21 Saccharomyces Boulardii [Florastor] 500 mg PO BIDWM 15 Days #30 cap 03/29/21 - Allergies Allergies/Adverse Reactions: Allergies Allergy/AdvReac Type Severity Reaction Status Date / Time abacavir [From Triumeq] Allergy Unknown Verified 03/03/21 12:16 dolutegravir [From Triumeq] Allergy Unknown Verified 03/03/21 12:16 lamivudine [From Triumeq] Allergy Unknown Verified 03/03/21 12:16 metronidazole Allergy Unknown Verified 03/03/21 12:16 rabeprazole [From Aciphex] Allergy Unknown Verified 03/03/21 12:16 Sulfa (Sulfonamide Allergy Unknown Verified 03/03/21 12:16 Antibiotics) - Social History Does the pt smoke?: No Smoking Status: Never smoker Does the pt drink ETOH?: No Does the pt have substance abuse?: No - Immunizations Immunizations are current?: Yes Immunizations: TDAP current <10years - POLST Patient has POLST: No PD ED PE NORMAL - Vitals Vital signs reviewed: Yes - General General: Alert and oriented X 3, Well developed/nourished - HEENT HEENT: Pharynx benign - Neck Neck: Supple, no meningeal sign, No adenopathy - Cardiac Cardiac: RRR, No murmur - Respiratory Respiratory: Clear bilaterally - Abdomen Abdomen: Soft. No: Normal bowel sounds (increased) Results - Vitals Vitals: Vital Signs - 24 hr 03/29/21 03/29/21 03/29/21 06:55 09:17 10:52 Temperature 37.2 C 36.7 C 36.6 C Heart Rate 64 59 L 64 Respiratory 18 16 16 Rate Blood Pressure 129/78 95/60 123/67 O2 Saturation 96 97 100 03/29/21 12:00 Temperature 36.7 C Heart Rate 70 Respiratory 16 Rate Blood Pressure 121/78 O2 Saturation 100 Oxygen O2 Source Room air - Labs Labs: Laboratory Tests 03/29/21 03/29/21 03/29/21 07:15 07:15 08:14 WBC 9.0 RBC 4.32 L Hgb 14.1 Hct 39.2 L MCV 90.7 MCH 32.6 H MCHC 36.0 RDW 11.9 L Plt Count 198 MPV 9.7 Neut # (Auto) 6.0 Lymph # (Auto) 2.6 [place] # (Auto) 0.4 Eos # (Auto) 0.0 Baso # (Auto) 0.0 Absolute Nucleated RBC 0.00 Nucleated RBC % 0.0 Sodium 138 Potassium 4.0 Chloride 108 Carbon Dioxide 23 Anion Gap 7.0 BUN 19 Creatinine 1.0 Estimated GFR (MDRD) 79 L Glucose 106 H Calcium 9.6 Total Bilirubin 0.4 AST 22 ALT 27 Alkaline Phosphatase 30 L Total Protein 7.8 Albumin 4.5 Globulin 3.3 Albumin/Globulin Ratio 1.4 Lipase 25 Urine Color YELLOW Urine Clarity CLEAR Urine pH 5.5 Ur Specific [place] >=1.030 H Urine Protein NEGATIVE Urine Glucose (UA) NEGATIVE Urine Ketones NEGATIVE Urine Occult Blood NEGATIVE Urine Nitrite NEGATIVE Urine Bilirubin NEGATIVE Urine Urobilinogen 0.2 (NORMAL) Ur Leukocyte Esterase NEGATIVE Ur Microscopic Review NOT INDICATED Urine Culture Comments NOT INDICATED Stl C. diff Tox B Gene 03/29/21 08:14 WBC RBC Hgb Hct MCV MCH MCHC RDW Plt Count MPV Neut # (Auto) Lymph # (Auto) [place] # (Auto) Eos # (Auto) Baso # (Auto) Absolute Nucleated RBC Nucleated RBC % Sodium Potassium Chloride Carbon Dioxide Anion Gap BUN Creatinine Estimated GFR (MDRD) Glucose Calcium Total Bilirubin AST ALT Alkaline Phosphatase Total Protein Albumin Globulin Albumin/Globulin Ratio Lipase Urine Color Urine Clarity Urine pH Ur Specific [place] Urine Protein Urine Glucose (UA) Urine Ketones Urine Occult Blood Urine Nitrite Urine Bilirubin Urine Urobilinogen Ur Leukocyte Esterase Ur Microscopic Review Urine Culture Comments Stl C. diff Tox B Gene NEGATIVE PD MEDICAL DECISION MAKING - ED course Complexity details: reviewed old records, re-evaluated patient (improved with IV fluids, antiemetics and meds for cramps/diarrhea. ), considered differential, d/w patient Departure - Departure Disposition: 01 Home, Self Care Clinical Impression: Acute nausea with nonbilious vomiting, Chronic diarrhea, Avascular necrosis of bone of right hip, Dental infection Condition: Stable Record reviewed to determine appropriate education?: Yes Instructions: ED Nausea Vomiting Follow-Up: John Gusman MD [Provider Admit Priv/Credential] - Prescriptions: Doxycycline Hyclate 100 mg PO BID 7 Days #14 cap Saccharomyces Boulardii [Florastor] 500 mg PO BIDWM 15 Days #30 cap Loperamide [Imodium] 2 mg PO QID PRN #30 cap PRN Reason: Diarrhea Promethazine [Phenergan] 25 mg PO Q6H PRN #25 tab PRN Reason: Nausea / Vomiting Comments: Small frequent fluids and bland food initially. Promethazine every 6 hours if needed for nausea. Continue your other usual medicines. Your stool culture will result the next day or 2 to see if there is an obvious infectious cause for your diarrhea. Other consideration would be inflammatory conditions such as ulcerative colitis or Crohn's disease. That would need to get evaluated in diagnosed with colonoscopy for further evaluation. I provided the name of one of the surgeons in [facility] to make an appointment and discuss the potential for colonoscopy to further evaluate. If there is an infectious cause from the found by the culture, will call in tell you particular antibiotic or treatment needed. Right now we can go with doxycycline twice daily for a week for your dental infection. Hopefully this will not further aggravate the diarrhea. To try to blunt that, we can use Imodium antidiarrheal medicine along with probiotic Florastor twice daily. I transmitted your prescriptions to the pharmacy. Also follow-up with primary care if not improving well. Discharge Date/Time: 03/29/21 12:20
[2021-03-29 07:27] LABS: BASOPHILS % (AUTO) 0.3 %; EOSINOPHILS % (AUTO) 0.2 %; HCT - HEMATOCRIT 39.2 % (42.0-52.0); HGB - HEMOGLOBIN 14.1 g/dL (14.0-18.0); LYMPHOCYTES # (AUTO) 2.6 10^3/uL (1.5-3.5); LYMPHOCYTES % (AUTO) 28.4 %; MEAN CORPUSCULAR HEMOGLOBIN 32.6 pg (27.0-31.0); MEAN CORPUSCULAR VOLUME 90.7 fL (80.0-94.0); MEAN PLATELET VOLUME 9.7 fL (7.4-11.4); MONOCYTES # (AUTO) 0.4 10^3/uL (0.0-1.0); MONOCYTES % (AUTO) 4.3 %; NEUTROPHILS % (AUTO) 66.5 %; PLT - PLATELET COUNT 198 10^3/uL (130-450); RED BLOOD COUNT 4.32 10^6/uL (4.70-6.10); RED CELL DISTRIBUTION WIDTH 11.9 % (12.0-15.0)
[2021-03-29] MEDS ORDERED: KETOROLAC 30 MG/ML VIAL IVP STA (07:49)
[2021-03-29] MEDS ORDERED: SODIUM CHLORIDE 0.9% 1,000 ML IV STA (07:49)
[2021-03-29] MEDS ORDERED: DROPERIDOL 5 MG/2 ML VIAL IVP STA ×2 (07:49→10:46)
[2021-03-29 07:54] LABS: ALBUMIN 4.5 g/dL (3.2-5.5); ALBUMIN/GLOBULIN RATIO 1.4 (1.0-2.2); BILIRUBIN,TOTAL 0.4 mg/dL (0.2-1.0); CALCIUM 9.6 mg/dL (8.5-10.3); TOTAL PROTEIN 7.8 g/dL (6.7-8.2)
[2021-03-29] MEDS ORDERED: LOPERAMIDE 2 MG CAPSULE PO STA (09:17)
[2021-03-29 09:20] LABS: BILIRUBIN,URINE NEGATIVE (NEGATIVE); GLUCOSE, URINE (UA) NEGATIVE (NEGATIVE); KETONES,URINE (UA) NEGATIVE (NEGATIVE); LEUKOCYTE ESTERASE, URINE NEGATIVE (NEGATIVE); NITRITE,URINE NEGATIVE (NEGATIVE); OCCULT BLOOD,URINE NEGATIVE (NEGATIVE); PH,URINE 5.5 PH (5.0-7.5); PROTEIN,URINE NEGATIVE (NEGATIVE); UROBILINOGEN,URINE 0.2 (NORMAL) E.U./dL (NORMAL)
[2021-03-29 09:21] LABS: CLARITY,URINE CLEAR (CLEAR)
[2021-03-29] MEDS ORDERED: SACCHAROMYCES BOULARDII 250 MG CAPSULE PO STA (09:25)
[2021-03-29] MEDS ORDERED: DOXYCYCLINE 100 MG TABLET PO STA (10:47)
[2021-03-29] MEDS ORDERED: MAG HYDROX/AL HYDROX/SIMETH 30 ML UDC PO STA (10:47)
[2021-03-29 12:01] VITALS: BP 121/78
[2021-03-29] MEDS ORDERED: SACCHAROMYCES BOULARDII 250 MG CAPSULE PO SCH (17:00)
== END 2021-03-29 12:20 | disposition home or self-care (01) ==
LOC: EDUNIT# → ED 06:51
DX: R11.2 Nausea with vomiting, unspecified (principal); K52.9 Noninfective gastroenteritis and colitis, unspecified; K04.7 Periapical abscess without sinus; M87.9 Osteonecrosis, unspecified
CPT/HCPCS: 36415; 80053; 81003; 81599; 83690; 85025; 87177; 87209; 87493; 96374; 96375; 96376; 99284; A9270; 81001; 87045; 87046; 87086